=== PATIENT | male | born 1940 | race Caucasian/White ===

== ENCOUNTER 2017-05-30 17:34 | Emergency (ER) | payer OTHER ==
[~2017-05-30] VITALS: Ht 175.3 cm; Wt 81.7 kg
[~2017-05-30 17:34] MED LIST changes: -ASPI81CH PO; -NEBI5
[2017-05-30] MEDS ORDERED: NEBI5 (21:31)
[2017-05-30] MEDS ORDERED: ASPI81CH PO (21:32)
[2017-05-30 23:57] LABS: BASOPHILS ABSOLUTE AUTO 0.03 K/mm3 (0.00-0.23); BASOPHILS PERCENT AUTO 0 % (0-2); EOSINOPHILS ABSOLUTE AUTO 0.06 K/mm3 (0.00-0.68); EOSINOPHILS PERCENT AUTO 1 % (0-6); Hemoglobin 14.2 g/dL (13.5-17.5); IMMATURE GRAN ABSOLUTE AUTO 0.12 K/mm3 (0.00-0.10); IMMATURE GRAN PERCENT AUTO 1 % (0-1); LYMPHOCYTES ABSOLUTE AUTO 4.57 K/mm3 (0.84-5.20); LYMPHOCYTES PERCENT AUTO 39 % (21-46); MONOCYTES ABSOLUTE AUTO 0.81 K/mm3 (0.16-1.47); MONOCYTES PERCENT AUTO 7 % (4-13); Mean Corpuscular HGB 28.5 pg (26.0-34.0); Mean Corpuscular HGB Conc 32.3 g/dL (31.5-36.5); Mean Corpuscular Volume 88 fL (80-100); Mean Platelet Volume 8.9 fL (9.1-12.4); NEUTROPHILS ABSOLUTE AUTO 6.03 K/mm3 (1.96-9.15); NEUTROPHILS PERCENT AUTO 52 % (41-73); Platelet Count 296 K/mm3 (150-400); RDW Coefficient Variation 16.2 % (11.7-14.2); RDW Standard Deviation 52.3 fL (35.1-46.3); Red Blood Cell Count 4.98 M/mm3 (4.30-5.90); White Blood Cell Count 11.62 K/mm3 (4.00-11.30)
[2017-05-31 00:21] LABS: Alanine Aminotransfer (ALT/SGP 24 U/L (12-78); Albumin, Blood 2.7 g/dL (3.4-5.0); Albumin/Globulin Ratio 0.5 (0.8-1.8); Alk Phos 77 U/L (50-136); Anion Gap 9 mmol/L (6-16); Aspartate Aminotrans (AST/SGOT 26 U/L (12-37); Bilirubin, Total 0.4 mg/dL (0.1-1.0); Blood Urea Nitrogen 20 mg/dL (8-24); Bun/Creatinine Ratio 26.1 (12.0-20.0); CO2, Blood 30 mmol/L (21-32); Chloride, Blood 98 mmol/L (98-108); Creatinine, Blood 0.77 mg/dL (0.60-1.20); Globulin, Blood 5.3 g/dL (2.2-4.0); Glomerular Filtration Rate >60 (60-); Glucose, Blood 102 mg/dL (70-99); Potassium, Blood 3.6 mmol/L (3.5-5.5); Sodium, Blood 137 mmol/L (136-145)
== END 2017-05-31 02:27 | disposition home or self-care (01) ==
LOC: ER 17:34
PROVIDERS: Emergency Medicine
DX: K59.00 Constipation, unspecified (principal); Z79.899 Other long term (current) drug therapy; Z79.82 Long term (current) use of aspirin; Z79.2 Long term (current) use of antibiotics; Z79.84 Long term (current) use of oral hypoglycemic drugs; Z87.891 Personal history of nicotine dependence
CPT/HCPCS: 36415; 74022; 74176; 80053; 83690; 85025; 99284

== ENCOUNTER → 2017-05-30 | Outpatient (CLI) | payer OTHER ==
[~2017-05-30] MED LIST: AMLO10 PO; ASPI81CH PO; Augmentin 875-1 EACH PO; Bystolic20 MG PO; CLOP75 PO; DULO60 PO; Depo-Testos200 MG/ML IM; FLUO20; Glucophage1000 MG PO; HYDACE10B PO; HYDRA25 PO; ISOMON60ER PO; Isosorbide Mono60 MG PO; LEVFLO500 PO; META800 PO; METF500 PO; METO50ER PO; Motion Sickness25 M1 PO; NEBI10 PO; NEBI5; PANT40 PO; SIMV40 PO; TAMS.4ER PO; VALD20 PO; VALS80 PO; VALSARTAN-HCTZ1 EAC3 PO; [UNRECOGNIZED DRUG - REMARK]
[2017-05-30 12:28] LABS: BASOPHILS ABSOLUTE AUTO 0.07 K/mm3 (0.00-0.23); BASOPHILS PERCENT AUTO 1 % (0-2); EOSINOPHILS ABSOLUTE AUTO 0.13 K/mm3 (0.00-0.68); EOSINOPHILS PERCENT AUTO 1 % (0-6); Hematocrit 41.5 % (37.0-53.0); Hemoglobin 13.6 g/dL (13.5-17.5); IMMATURE GRAN PERCENT AUTO 1 % (0-1); LYMPHOCYTES ABSOLUTE AUTO 4.95 K/mm3 (0.84-5.20); LYMPHOCYTES PERCENT AUTO 34 % (21-46); MONOCYTES ABSOLUTE AUTO 0.98 K/mm3 (0.16-1.47); MONOCYTES PERCENT AUTO 7 % (4-13); Mean Corpuscular HGB 29.4 pg (26.0-34.0); Mean Corpuscular HGB Conc 32.8 g/dL (31.5-36.5); Mean Corpuscular Volume 90 fL (80-100); Mean Platelet Volume 8.9 fL (9.1-12.4); NEUTROPHILS ABSOLUTE AUTO 8.42 K/mm3 (1.96-9.15); NEUTROPHILS PERCENT AUTO 57 % (41-73); Platelet Count 350 K/mm3 (150-400); RDW Coefficient Variation 16.4 % (11.7-14.2); RDW Standard Deviation 53.8 fL (35.1-46.3); Red Blood Cell Count 4.62 M/mm3 (4.30-5.90); White Blood Cell Count 14.65 K/mm3 (4.00-11.30)
[2017-05-30 12:46] LABS: Alanine Aminotransfer (ALT/SGP 24 U/L (12-78); Albumin, Blood 2.6 g/dL (3.4-5.0); Albumin/Globulin Ratio 0.5 (0.8-1.8); Alk Phos 75 U/L (40-126); Anion Gap 8 mmol/L (6-16); Aspartate Aminotrans (AST/SGOT 21 U/L (12-37); Bilirubin, Total 0.4 mg/dL (0.1-1.0); Blood Urea Nitrogen 13 mg/dL (8-24); Bun/Creatinine Ratio 14.4 (12.0-20.0); CO2, Blood 28 mmol/L (21-32); Calcium, Blood 9.3 mg/dL (8.5-10.1); Chloride, Blood 99 mmol/L (98-108); Globulin, Blood 5.2 g/dL (2.2-4.0); Glomerular Filtration Rate >60 (60-); Glucose, Blood 135 mg/dL (70-99); Potassium, Blood 3.7 mmol/L (3.5-5.5); Sodium, Blood 135 mmol/L (136-145); Total Protein, Blood 7.8 g/dL (6.4-8.2)
== END ==
LOC: LAB EV 12:24
PROVIDERS: Physician Assistant
DX: R10.9 Unspecified abdominal pain (principal)
CPT/HCPCS: 80053; 83690; 85025

== ENCOUNTER → 2018-01-10 | Outpatient (CLI) | payer OTHER ==
[~2018-01-10] MED LIST changes: +ASPI81CH PO; +NEBI5
== END ==
LOC: LAB 16:46 → LAB SHORT 16:46
DX: L08.9 Local infection of the skin and subcutaneous tissue, unspecified (principal); L30.9 Dermatitis, unspecified; L60.9 Nail disorder, unspecified
CPT/HCPCS: 87070; 87205

== ENCOUNTER → 2020-02-11 | Outpatient (CLI) | payer OTHER | END | disposition home or self-care (01) | LOC: LAB SHORT 18:33 → LAB EV 18:33 | DX: L02.212 Cutaneous abscess of back [any part, except buttock and flank] (principal) | CPT/HCPCS: 87070; 87077; 87147; 87186; 87205 ==

== ENCOUNTER 2020-06-08 19:50 | Emergency (ER) | payer OTHER ==
[~2020-06-08] VITALS: Ht 182.9 cm; Wt 90.7 kg
[2020-06-08 20:18] LABS: BASOPHILS ABSOLUTE AUTO 0.04 K/mm3 (0.00-0.23); BASOPHILS PERCENT AUTO 0 % (0-2); EOSINOPHILS ABSOLUTE AUTO 0.25 K/mm3 (0.00-0.68); EOSINOPHILS PERCENT AUTO 3 % (0-6); Hematocrit 49.9 % (37.0-53.0); Hemoglobin 16.3 g/dL (13.5-17.5); IMMATURE GRAN ABSOLUTE AUTO 0.07 K/mm3 (0.00-0.10); IMMATURE GRAN PERCENT AUTO 1 % (0-1); LYMPHOCYTES ABSOLUTE AUTO 2.24 K/mm3 (0.84-5.20); LYMPHOCYTES PERCENT AUTO 24 % (21-46); MONOCYTES ABSOLUTE AUTO 0.76 K/mm3 (0.16-1.47); MONOCYTES PERCENT AUTO 8 % (4-13); Mean Corpuscular HGB 29.4 pg (26.0-34.0); Mean Corpuscular HGB Conc 32.7 g/dL (31.5-36.5); Mean Corpuscular Volume 90 fL (80-100); NEUTROPHILS ABSOLUTE AUTO 5.94 K/mm3 (1.96-9.15); NEUTROPHILS PERCENT AUTO 64 % (41-73); Platelet Count 189 K/mm3 (150-400); RDW Coefficient Variation 13.4 % (11.7-14.2); Red Blood Cell Count 5.54 M/mm3 (4.30-5.90)
[2020-06-08 20:30] LABS: Alanine Aminotransfer (ALT/SGP 16 U/L (12-78); Albumin, Blood 3.5 g/dL (3.4-5.0); Albumin/Globulin Ratio 0.7 (0.8-1.8); Alk Phos 74 U/L (50-136); Anion Gap 5 mmol/L (6-16); Aspartate Aminotrans (AST/SGOT 23 U/L (12-37); Bilirubin, Total 0.6 mg/dL (0.1-1.0); Blood Urea Nitrogen 22 mg/dL (8-24); Bun/Creatinine Ratio 22.2 (12.0-20.0); CO2, Blood 26 mmol/L (21-32); Calcium, Blood 9.4 mg/dL (8.5-10.1); Chloride, Blood 102 mmol/L (98-108); Creatinine, Blood 0.99 mg/dL (0.60-1.20); Globulin, Blood 5.3 g/dL (2.2-4.0); Glomerular Filtration Rate >60 (60-); Glucose, Blood 168 mg/dL (70-99); Potassium, Blood 5.1 mmol/L (3.5-5.5); Sodium, Blood 133 mmol/L (136-145); Total Protein, Blood 8.8 g/dL (6.4-8.2)
[2020-06-08 20:50] LABS: Source, Urine Clean Catch
[2020-06-08 20:53] LABS: Appearance, Urine Clear (Clear); Bilirubin, Urine Neg (Neg); Blood, Urine 2+ (Neg); Color, Urine Yellow (P-Yellow); Glucose Qualitative, Urine Neg (Neg); Ketones, Urine Neg (Neg); Leukocyte Esterase, Urine Neg (Neg); Nitrite, Urine Neg (Neg); Protein, Urine Neg (Neg); Specific Gravity, Urine 1.015 (1.003-1.022); Urobilinogen, Urine NORM (Normal)
[2020-06-08 21:03] LABS: Bacteria Not Seen /hpf; Squamous Epithelial Cells Rare /hpf (Few); White Blood Cells, Urine 0-2 /hpf (0-5)
[2020-06-08 21:45] LABS: Influenza A, PCR NEGATIVE (NEGATIVE); Influenza B, PCR NEGATIVE (NEGATIVE); Resp Syncytial Virus, PCR NEGATIVE (NEGATIVE); SARS-Cov-2 (COVID-19) PCR, MMC NEGATIVE (NEGATIVE)
[2020-06-08] MEDS ORDERED: AMOCLA875 PO (22:34)
[2020-06-08] MEDS ORDERED: AZIT250 PO (23:28)
== END 2020-06-09 00:06 | disposition home or self-care (01) ==
LOC: ER 19:50
PROVIDERS: Emergency Medicine
DX: J18.9 Pneumonia, unspecified organism (principal); Z20.822 Contact with and (suspected) exposure to COVID-19; Z79.899 Other long term (current) drug therapy; Z87.891 Personal history of nicotine dependence
CPT/HCPCS: 0241U; 36415; 51701; 71045; 80053; 81001; 85025; 93005; 93010; 96365-59; 99284-25; J0696

== ENCOUNTER → 2021-12-12 | Outpatient (CLI) | payer OTHER ==
[~2021-12-12] MED LIST changes: +AMOCLA875 PO; +AZIT250 PO
== END | disposition home or self-care (01) ==
LOC: LAB SHORT 13:00 → LAB 13:00
DX: R53.1 Weakness (principal)
CPT/HCPCS: 87086

== ENCOUNTER 2022-07-27 09:58 | Observation (INO) | payer OTHER ==
[~2022-07-27] VITALS: Ht 182.9 cm; Wt 81.7 kg
[~2022-07-27 09:58] MED LIST changes: -Glucophage1000 MG PO; +METF500C PO
[2022-07-27 10:41] LABS: BASOPHILS ABSOLUTE AUTO 0.05 K/mm3 (0.00-0.23); BASOPHILS PERCENT AUTO 0 % (0-2); EOSINOPHILS PERCENT AUTO 0 % (0-6); Hemoglobin 16.9 g/dL (13.5-17.5); IMMATURE GRAN ABSOLUTE AUTO 0.14 K/mm3 (0.00-0.10); IMMATURE GRAN PERCENT AUTO 1 % (0-1); LYMPHOCYTES ABSOLUTE AUTO 1.48 K/mm3 (0.84-5.20); LYMPHOCYTES PERCENT AUTO 7 % (21-46); MONOCYTES ABSOLUTE AUTO 0.93 K/mm3 (0.16-1.47); MONOCYTES PERCENT AUTO 4 % (4-13); Mean Corpuscular HGB 28.2 pg (26.0-34.0); Mean Corpuscular HGB Conc 31.9 g/dL (31.5-36.5); Mean Corpuscular Volume 89 fL (80-100); Mean Platelet Volume 9.1 fL (9.1-12.4); NEUTROPHILS ABSOLUTE AUTO 19.19 K/mm3 (1.96-9.15); NEUTROPHILS PERCENT AUTO 88 % (41-73); Platelet Count 293 K/mm3 (150-400); RDW Coefficient Variation 14.3 % (11.7-14.2); RDW Standard Deviation 46.4 fL (35.1-46.3); Red Blood Cell Count 5.99 M/mm3 (4.30-5.90); White Blood Cell Count 21.79 K/mm3 (4.00-11.30)
[2022-07-27 10:59] LABS: Albumin, Blood 3.3 g/dL (3.4-5.0); Albumin/Globulin Ratio 0.7 (0.8-1.8); Bilirubin, Total 0.5 mg/dL (0.1-1.0); Bun/Creatinine Ratio 50.8 (12.0-20.0); Calcium, Blood 9.3 mg/dL (8.5-10.1); Creatinine, Blood 0.81 mg/dL (0.60-1.20); Potassium, Blood 4.1 mmol/L (3.5-5.5); Total Protein, Blood 8.3 g/dL (6.4-8.2)
[2022-07-27 11:00] LABS: Bicarbonate Venous 25.9 mmol/L (24.0-30.0); PCO2 Venous 42.1 mmHg (38-42); pH Blood Venous 7.41 (7.34-7.37)
[2022-07-27 11:20] LABS: Source, Urine Clean Catch
[2022-07-27 11:23] LABS: Appearance, Urine Clear (Clear); Bilirubin, Urine Neg (Neg); Blood, Urine 1+ (Neg); Color, Urine Yellow (P-Yellow); Glucose Qualitative, Urine Neg (Neg); Ketones, Urine Neg (Neg); Leukocyte Esterase, Urine Neg (Neg); Nitrite, Urine Neg (Neg); Protein, Urine Neg (Neg); Specific Gravity, Urine 1.015 (1.003-1.022); Urobilinogen, Urine NORM (Normal)
[2022-07-27 11:30] LABS: Bacteria Not Seen /hpf; Red Blood Cells, Urine 0-2 /hpf (0-2); Squamous Epithelial Cells Rare /hpf (Few); White Blood Cells, Urine Not Seen /hpf (0-5)
[2022-07-27 11:30] LABS: Influenza A, PCR NEGATIVE (NEGATIVE); Influenza B, PCR NEGATIVE (NEGATIVE); Resp Syncytial Virus, PCR NEGATIVE (NEGATIVE); SARS-Cov-2 (COVID-19) PCR, MMC NEGATIVE (NEGATIVE)
--- NOTE | 2022-07-27 14:26 | NUR ---
pt opens eyes no verbal looks uncomfotable with his secretions and ventilation. Review [facility] physician and careers counsellor. pt to return to [facility] care and hopefully [facility]. updated [facility]. sent packet to [place] palliative care team and message. will update careers counsellor. Pt may need alterative positoning for airway management.
--- NOTE | 2022-07-27 16:16 | NUR ---
Spiritual Care Visit in ED Pt. is awake in bed, Spouse is present and welcomes my visit. Pt. and Spouse are known to this civil engineering drafter and rapport is established pretty quickly. The Pt. could communicate with affirmative eye movements. Spouse verbalized that they are choosing palliative care at the hospital and that the Pt. will return to [facility] on hospice. Life Review took place as did prayer for the Pt. and Spouse. Spouse displayed evidence of peace of mind with the hospice decision. Spouse verbalized gratitude for the spiritual care visit.
--- NOTE | 2022-07-27 16:34 | NUR ---
RM 304 PT REPORT RECEIVED FROM ER. PT ARRIVED VIA GURNEY ACCOMPANIED BY WELDER/INSTALLER. PT ALERT. TACHYPNEIC. PT TRANSFERED TO BED WITH SLIDER SHEET AND 4 ASSIST. PT TOLERATED WELL. NON REBREATHER MASK AT 13L IN PLACE. PT LUNGS CONGESTED WITH AUDIBLE RALES. PT PALE, COOL AND DRY. AT BEDSIDE. PT NOT NARCOTIC NIAVE. MEDCIOATED WITH MORPHINE 4L IV X1. AFTER 15 MINUTES HE IS BREATHING MUCH EASIER. STILL AWAKE AND LOOKING AT STAFF. ORAL CARE DONE. HOB 30 DEGREES. [place] R/T CONSULTED FOR A MORE COMFORTABLE OXYGEN DELIVERY DEVICE. HE FELT THAT THE NON REBREATHER WAS THE BETTER CHOICE. REY PATENT-DARK, RICH URINE. AFTER TALKING WITH JONAH PLEITEZ, PALATIVE CARE, WENT HOME. CONTINUE POC.
--- NOTE | 2022-07-27 17:07 | NUR ---
Pt sent to the floor needing high flow oxygen airway managment minimal positioned for comfort. lungs very coarse. oral care given blood tinged and pill fragnemts. pt ability to venitlate and move chest is poor. He tries to gag and not able some painful looking deep cough. Asked if this is worse she states yes the past few days has been worsening decling. Reviewed his air hunger and difficulty swallowing and pneumonia. Advised her he is progressing and getting worse. Warned her he may be eminent. Review of medications and strategies to maintain his airway with nursing. [place] had to leave [facility] to dark and icey. Will keep her updated. enema held for now due to pt breathing stress.
--- NOTE | 2022-07-28 06:43 | NUR ---
Shift Summary Pt on comfort care. Pt on 15L hi flow O2. Frequent oral care provided. Heavy secretions early in the shift were suctioned out. Scopolamine patch applied which greatly reduced secretions. Gave PRN Roxinol as need for air hunger. Pt asleep for duration of the shift.
--- NOTE | 2022-07-28 10:15 | NUR ---
Review of medications and strategies to care for Mr correa airway. Will continue to monitor closely. Pt may not tolerate trasfer will continue to reevaluate. at bedside. They are having a very meaninful interaction which is a privledge to witness. Will review Mrs Correa fatigue and stress with the chaplian. She has eye surgery today.
--- NOTE | 2022-07-28 10:54 | NUR ---
COMFORT CARE PT RESPONDS TO ORAL CARE. HE RESPONDED, OPENED HIS EYES, WHEN HIS CAME IN. JUST LEFT. COULD HEAR HIM GRUMBLING. MEDCIATED WITH ATIVAN 1MG IV AND MORPHINE 5 MG IV. WAITED FEW MINUTES TO REPOSTION HIM. HIS BREATHING PATTERN CAHNGED WITH PERIODS OF APNEA NOTED. CONTINUE POC.
--- NOTE | 2022-07-28 12:04 | NUR ---
NOTE IN ATTENDANCE PT SLOWLY STOPPED BREATHING WAS PALAPTIVE CARE, JONAH RN AND STAFF NURSE. PT WAS AT A SURGERY APPOINTMENT. COGNOS ADMINISTRATOR WAS CALLED, JOSE, HE KNOWS THE PT . HE IS NOTIFYING HER OF PT . POST MORTEM CARE DONE. BATHING, ORAL CARE, REY REMOVED AND IV REMOVED. SCOPLAMINE PATHC REMOVED FROM POSTERIOR RIGHT EAR. CONTINUE POC.
--- NOTE | 2022-07-28 12:46 | NUR ---
NOTE HERE AT BEDSIDE WITH CHANELLE BELTRÁN AND JONAH PLEITEZ. CONTINUE POC.
--- NOTE | 2022-07-28 12:55 | NUR ---
"Spiritual Care | EOL [facility] Pt. passed. TOD 10:40. Spouse was not present as she was having a laser procedure on her eye. After conferring with Palliative Care nurse. Spouse was contacted by phone and requested that she come to the hospital when she can. When spouse arrived, pastoral care was given. A prayer of blessing on the Pt. and family was given. Palliative Care spoke with spouse and EOL decisions were confirmed. The spouse left the room approx. 12:45pm. This monitoring specialist walked the Spouse to her care. Spouse verbalized gratitude for the spiritual care support, and the support from the Palliative care and floor nurses. Spouse has chosen [facility] as their home."
== END 2022-07-28 11:40 ==
LOC: ER 09:58 → MEDS 09:59
PROVIDERS: Emergency Medicine; ADMIT Internal Medicine
DX: J96.01 Acute respiratory failure with hypoxia (principal); J96.02 Acute respiratory failure with hypercapnia; J69.0 Pneumonitis due to inhalation of food and vomit; Z51.5 Encounter for palliative care; Z66 Do not resuscitate; K59.00 Constipation, unspecified; E87.1 Hypo-osmolality and hyponatremia; E87.8 Other disorders of electrolyte and fluid balance, not elsewhere classified; Z20.822 Contact with and (suspected) exposure to COVID-19
CPT/HCPCS: 0241U; 36415; 51701; 51702; 71045; 74018; 80053; 81001; 82803; 83880; 84484; 85025; 93005; 93010; 96365-59; 96366-59; 96375; 96375-59; 96376; 99285-25; A9270; G0378; J2060; J2270; J2543